=== PATIENT | female | born 1950 | race Caucasian/White ===

== ENCOUNTER 2017-01-26 08:04 | Emergency (ER) | payer OTHER ==
[2017-01-26 08:08] VITALS: BP 156/89; PULSE 82; TEMP 98.4; BMI 28.0
[2017-01-26] MEDS ORDERED: ACETAMINOPHEN 1000 MG/100 ML VIAL (NON FORMULARY) IVPB ONE (08:26)
[2017-01-26] MEDS ORDERED: METOCLOPRAMIDE HCL INJECTION 10 MG/2 ML VIAL IVPB ONE (08:27)
--- NOTE | 2017-01-26 08:36 | PDOC ---
History of Present Illness - General Chief Complaint: Pain, Acute Stated Complaint: NECK PAIN Time Seen by Provider: 01/26/17 08:24 - History of Present Illness Initial Comments: 01/26/17 08:37 66 F with h/o HTN, HLD, hypothyroid presents to ER with 1 week of L sided neck pain radiating down L arm. Pt denies CP/SOB. Denies any trauma or injury. Pt states that the neck pain is worse with certain movements, though she does not note any limitation in the ROM of her neck. She states that she has had similar pain before several years ago. Endorses some mild pins and needles sensation going down her L arm but no weakness. Has not had any difficulty gripping or holding onto objects. Pt also reports mild headache that gradually progressed, moving from her neck into the back of her head. Denies N/V. Denies neck stiffness. Denies F/C. Pt relates the pain to increased stress at her job. States that she feels a lot of pressure at work, which is where she states the pain feels worse. She reports significant improvement in the pain when she is at home. Past History - Past Medical History Allergies/Adverse Reactions: Allergies Allergy/AdvReac Type Severity Reaction Status Date / Time codeine [Codeine] Allergy Verified 01/26/17 08:05 Home Medications: Ambulatory Orders Enalapril Maleate 20 mg PO DAILY 08/04/12 Levothyroxine [Synthroid -] 50 mcg PO DAILY 08/04/12 Omeprazole [Prilosec (RX)] 20 mg PO DAILY 08/04/12 Aspirin [ASA -] 81 mg PO DAILY 08/10/14 Nortriptyline HCl [Pamelor -] 25 mg PO DAILY 08/10/14 Verapamil HCl [Verapamil ER] 240 mg PO HS 01/24/16 Anemia: No HTN: Yes Thyroid Disease: Yes - Surgical History Abdominal Surgery: Yes (HERNIA X3) Cholecystectomy: Yes - Psycho/Social/Smoking Cessation Hx Anxiety: No Suicidal Ideation: No Smoking Status: No Smoking History: Never smoked Number of Cigarettes Smoked Daily: 0 Hx Alcohol Use: No Drug/Substance Use Hx: No Substance Use Type: None Review of Systems - Review of Systems Comments:: 01/26/17 08:41 "GENERAL/CONSTITUTIONAL: No fever or chills. No weakness. HEAD, EYES, EARS, NOSE AND THROAT: No change in vision. No ear pain or discharge. No sore throat. CARDIOVASCULAR: No chest pain or shortness of breath. RESPIRATORY: No cough, wheezing, or hemoptysis. GASTROINTESTINAL: No nausea, vomiting, diarrhea or constipation. GENITOURINARY: No dysuria, frequency, or change in urination. MUSCULOSKELETAL: +Left neck pain. No joint or muscle swelling or pain. No back pain. SKIN: No rash NEUROLOGIC: No headache, vertigo, loss of consciousness, or change in strength/ sensation. ENDOCRINE: No increased thirst. No abnormal weight change. HEMATOLOGIC/LYMPHATIC: No anemia, easy bleeding, or history of blood clots. ALLERGIC/IMMUNOLOGIC: No hives or skin allergy. " *Physical Exam - Vital Signs Last Vital Signs Temp Pulse Resp BP Pulse Ox 98.4 F 82 18 156/89 97 01/26/17 08:05 01/26/17 08:05 01/26/17 08:05 01/26/17 08:05 01/26/17 08:05 - Physical Exam Comments: 01/26/17 08:42 "GENERAL: Awake, alert, and fully oriented, well appearing in no acute distress HEAD: No signs of trauma EYES: PERRLA, EOMI, sclera anicteric, conjunctiva clear ENT: Auricles normal inspection, hearing grossly normal, nares patent, oropharynx clear without exudates. Moist mucosa NECK: +paraspinal L posterior tenderness, Normal ROM, supple, no lymphadenopathy , JVD, or masses, no bruits LUNGS: Breath sounds equal, clear to auscultation bilaterally. No wheezes, and no crackles HEART: Regular rate and rhythm, normal S1 and S2, no murmurs, rubs or gallops ABDOMEN: Soft, nontender, normoactive bowel sounds. No guarding, no rebound. No masses EXTREMITIES: Normal range of motion, no edema. No clubbing or cyanosis. No cords, erythema, or tenderness NEUROLOGICAL: Cranial nerves II through XII intact. 5/5 strength and sensation in all extremities, cerebellar function intact. Normal speech, normal gait SKIN: Warm, Dry, normal turgor, no rashes or lesions noted. " Heart Score/ECG Review - History History: Slightly suspicious - Electrocardiogram EKG: Normal - Age Age: >/= 65 - Risk Factors Risk Factors Heart Score: Yes Hx Hypercholesterolemia, Yes Hx Hypertension Based on the list above the patient has:: 1-2 risk factors - Troponin Troponin: </= normal limit - Score Heart Score - Total: 3 - ECG Impressions Comment:: 01/26/17 08:43 NSR, no MARIANO/STDs, no TWIs, axis wnl, normal intervals ED Treatment Course - LABORATORY CBC & Chemistry Diagram: 01/26/17 08:29 01/26/17 08:29 - RADIOLOGY Radiology Studies Ordered: Category Date Time Status HEAD CT WITHOUT CONTRAST [CT] Stat CT Scan 01/26/17 08:25 Ordered CHEST X-RAY PORTABLE* [RAD] Stat Radiology 01/26/17 08:26 Ordered Medical Decision Making - Medical Decision Making 01/26/17 08:44 66 F with L sided neck pain radiating down L arm. Likely radiculopathy given subjective paresthesias. However, pt with completely normal neuro exam. Thus, low suspicion for acute spinal cord injury or acute stroke. Pt does complain of mild headache but otherwise well appearing with normal exam, making ICH unlikely. No fevers or infectious symptoms to suggest meningitis. Pt with no chest pain/SOB, and EKG is completely nonischemic making anginal equivalent unlikely. - Labs - CTH - CXR - Tylenol/reglan 01/26/17 10:34 CBC, BMP 01/26/17 08:29 01/26/17 08:29 Trop negative, CTH negative Pt reports significant improvement in pain s/p tylenol and reglan. Likely muscular vs radicular pain. Pt to f/u with PMD and neurologist, as well as environmental engineering manager. *DC/Admit/Observation/Transfer Diagnosis at time of Disposition: Neck pain - Discharge Dispostion Disposition: HOME Condition at time of disposition: Good - Patient Instructions Printed Discharge Instructions: DI for Neck Pain Additional Instructions: Please follow up with your primary care doctor and environmental engineering manager within 1 week for a re-evaluation. Your neck pain is likely due to a pinched nerve or muscle sprain. You should see a neurologist for further evaluation. You may need an MRI of your neck. Take tylenol every 8 hours as needed for pain. If you experience worsening pain, numbness, weakness in your arm, chest pain, or any other concerning symptoms, return immediately to the ER. - Post Discharge Activity Work/School Note: Back to Work - Attestations Physician Attestion: 01/26/17 10:37 I, Dr. Roberto Vaz MD, attest that this document has been prepared under my direction and personally reviewed by me in its entirety. I further attest, that it accurately reflects all work, treatment, procedures and medical decision -making performed by me.
[2017-01-26] MEDS ORDERED: ACETAMINOPHEN INJECTION 100 ML IVPB ONE (08:47)
[2017-01-26 09:14] LABS: ALBUMIN 4.3 g/dl (3.5-5.0); ALK PHOS 84 U/L (32-92); ANION GAP 5 (8-16); CALCIUM 9.4 mg/dl (8.4-10.2); CO2 27 mmol/L (22-28); CPK 111 IU/L (26-192); CREATININE 0.7 mg/dl (0.6-1.3); GLUCOSE,RANDOM 113 mg/dl (74-106); SGOT/AST 28 U/L (10-42); SGPT/ALT 37 U/L (10-40); TOT PROT 7.1 g/dl (6.4-8.3)
[2017-01-26 09:23] LABS: TROPONIN I (DFP) < 0.03 ng/ml (0.03-0.50)
[2017-01-26 10:17] LABS: BASOPHIL 0.5 % (0-2.0); EOSINOPHIL 5.7 % (0-4.5); MCH 29.1 pg (25.7-33.7); MEAN CELL VOLUME 88.1 fl (80-96); MEAN PLT VOLUME 9.3 fl (7.5-11.1); NEUTROPHILS 37.4 % (42.8-82.8); PLATELET COUNT 306 K/MM3 (134-434); RDW 14.6 % (11.6-15.6); WHITE BLOOD COUNT 6.3 K/mm3 (4.0-10.8)
--- NOTE | 2017-01-28 08:09 | EKG ---
Test Reason : Blood Pressure : / mmHG Vent. Rate : 071 BPM Atrial Rate : 071 BPM P-R Int : 184 ms QRS Dur : 084 ms QT Int : 360 ms P-R-T Axes : 037 -19 032 degrees QTc Int : 392 ms NORMAL SINUS RHYTHM MINIMAL VOLTAGE CRITERIA FOR LVH, MAY BE NORMAL VARIANT BORDERLINE ECG WHEN COMPARED WITH ECG OF 10-AUG-2014 14:46, NO SIGNIFICANT CHANGE WAS FOUND Confirmed by PIA DESOUZA MD ([id number]) on 01/28/2017 8:08:39 AM Referred By: MD FRAZIER Confirmed By:PIA DESOUZA MD
== END 2017-01-26 10:46 | disposition home or self-care (01) ==
LOC: FER 08:04
PROC: 3E033NZ Introduction of Analgesics, Hypnotics, Sedatives into Peripheral Vein, Percutaneous Approach (ICD-10-PCS; principal; 2017-01-26)
PROC: 3E033GC Introduction of Other Therapeutic Substance into Peripheral Vein, Percutaneous Approach (ICD-10-PCS; 2017-01-26)
DX: M54.2 Cervicalgia (principal); E03.9 Hypothyroidism, unspecified; E78.5 Hyperlipidemia, unspecified; I10 Essential (primary) hypertension
CPT/HCPCS: 36415; 70450-TC; 71010-TC; 80053; 84443; 84484; 85025; 93005; 96374; 96375; 99283-25

== ENCOUNTER 2017-04-28 13:25 | Emergency (ER) | payer OTHER ==
[2017-04-28 14:00] VITALS: BP 152/92; PULSE 85; TEMP 98.6; BMI 28.1
[2017-04-28] MEDS ORDERED: IBUPROFEN 600 MG TABLET (FP) PO ONE ×2 (14:22→14:28)
--- NOTE | 2017-04-28 14:25 | PDOC ---
History of Present Illness - General History Source: Patient Exam Limitations: No Limitations - History of Present Illness Initial Comments: 04/28/17 14:48 The patient is a 66 year old female, with a significant past medical history of HTN, HLD, hypothyroid and GERD, who presents to the emergency department with left and right sided face / jaw pain / neck pain / swelling for the last 2 days. She reports that it hurts to swallow as well. She states that certain neck movements exacerbates her pain. She also reports that she has a cough that is non productive. She states that she took ibuprofen 500mg at 8am this morning with minimal relief of her symptoms. She denies any previous stress tests. She denies any family history of heart disease. The patient denies chest pain, shortness of breath, headache and dizziness. Denies fever, chills, nausea, vomit, diarrhea and constipation. Denies dysuria, frequency, urgency and hematuria. Allergies: Codeine Past surgical history: Abdominal hernia repair (x3), cholecystectomy Social history: No alcohol, tobacco or drug use reported <Mateo Watson - Last Filed: 04/28/17 14:48> - General History Source: Patient Exam Limitations: No Limitations <Judith Pena - Last Filed: 04/28/17 15:20> - General Chief Complaint: Pain Stated Complaint: LEFT JAW/NECK SWELLING Time Seen by Provider: 04/28/17 13:39 Past History <Mateo Watson - Last Filed: 04/28/17 14:48> - Past Medical History Anemia: No COPD: No HTN: Yes Hypercholesterolemia: Yes Thyroid Disease: Yes - Surgical History Abdominal Surgery: Yes (HERNIA X3) Cholecystectomy: Yes - Suicide/Smoking/Psychosocial Hx Smoking Status: No Smoking History: Never smoked Number of Cigarettes Smoked Daily: 0 Hx Alcohol Use: Yes (OCCASIONAL) Drug/Substance Use Hx: No Substance Use Type: None <Judith Pena - Last Filed: 04/28/17 15:20> - Past Medical History Allergies/Adverse Reactions: Allergies Allergy/AdvReac Type Severity Reaction Status Date / Time codeine [Codeine] Allergy Verified 04/28/17 13:50 Home Medications: Ambulatory Orders Enalapril Maleate 20 mg PO HS 08/04/12 Levothyroxine [Synthroid -] 50 mcg PO HS 08/04/12 Omeprazole [Prilosec (RX)] 20 mg PO HS 08/04/12 Aspirin [ASA -] 81 mg PO HS 08/10/14 Nortriptyline HCl [Pamelor -] 25 mg PO HS 08/10/14 Verapamil HCl [Verapamil ER] 240 mg PO HS 01/24/16 Fluticasone Prop 0.05% Nasal [Flonase -] 1 spray NS BID #1 bot 04/28/17 Fluticasone Prop 0.05% Nasal [Flonase -] 1 spray NS BID #1 bot 04/28/17 Ibuprofen [Motrin -] 600 mg PO TID #90 tablet 04/28/17 Review of Systems - Review of Systems Able to Perform ROS?: Yes Comments:: 04/28/17 14:48 GENERAL/CONSTITUTIONAL: No fever or chills. No weakness. HEAD, EYES, EARS, NOSE AND THROAT: (+) Bilateral jaw and neck pain with swelling. Pain when swallowing. No change in vision. No ear pain or discharge. CARDIOVASCULAR: No chest pain or shortness of breath RESPIRATORY: No cough, wheezing, or hemoptysis. GASTROINTESTINAL: No nausea, vomiting, diarrhea or constipation. GENITOURINARY: No dysuria, frequency, or change in urination. MUSCULOSKELETAL: No joint or muscle swelling or pain. No neck or back pain. SKIN: No rash NEUROLOGIC: No headache, vertigo, loss of consciousness, or change in strength/ sensation. ENDOCRINE: No increased thirst. No abnormal weight change HEMATOLOGIC/LYMPHATIC: No anemia, easy bleeding, or history of blood clots. ALLERGIC/IMMUNOLOGIC: No hives or skin allergy. <Mateo Watson - Last Filed: 04/28/17 14:48> *Physical Exam - Vital Signs Last Vital Signs Temp Pulse Resp BP Pulse Ox 98.6 F 85 16 152/92 99 04/28/17 13:36 04/28/17 13:36 04/28/17 13:36 04/28/17 13:36 04/28/17 13:36 - Physical Exam Comments: 04/28/17 14:48 GENERAL: Awake, alert, and fully oriented, in no acute distress HEAD: No signs of trauma, normocephalic, atraumatic EYES: PERRLA, EOMI, sclera anicteric, conjunctiva clear ENT: (+) Turbenent enlargement in the nose. Auricles normal inspection, hearing grossly normal, oropharynx clear without exudates. Moist mucosa NECK: (+) Tenderness and lymphadenopathy, no erythema noted but cobblestoning. Normal ROM, supple, no, JVD, or masses LUNGS: No distress, speaks full sentences, clear to auscultation bilaterally HEART: Regular rate and rhythm, normal S1 and S2, no murmurs, rubs or gallops, peripheral pulses normal and equal bilaterally. MUSCULOSKELETAL: (+) Trapezial muscle tenderness ABDOMEN: Soft, nontender, normoactive bowel sounds. No guarding, no rebound. No masses EXTREMITIES : Normal inspection, Normal range of motion, no edema. No clubbing or cyanosis. NEUROLOGICAL: AO x 3 Normal gait, SKIN: Warm, Dry, normal turgor, no rashes or lesions noted. <Mateo Watson - Last Filed: 04/28/17 14:48> - Vital Signs Last Vital Signs Temp Pulse Resp BP Pulse Ox 98.6 F 85 16 152/92 99 04/28/17 13:36 04/28/17 13:36 04/28/17 13:36 04/28/17 13:36 04/28/17 13:36 <Judith Pena - Last Filed: 04/28/17 15:20> Heart Score/ECG Review #1 General ECG Interpretation: Sinus Rhythm, Normal Rate (74), Normal Intervals, No acute ischemic changes <Judith Pena - Last Filed: 04/28/17 15:20> ED Treatment Course - RADIOLOGY Radiology Studies Ordered: Category Date Time Status CHEST PA & LAT [RAD] Stat Radiology 04/28/17 14:22 Ordered <Judith Pena - Last Filed: 04/28/17 15:20> Medical Decision Making - Medical Decision Making 04/28/17 14:23 66-year-old female history of hypertension here today complaining of left lateral neck and jaw pain. Patient states previously was on the right side and now she feels on the left started 5 days ago does have pain with swallowing and soreness in the back of her throat in addition she describes nasal congestion cough which is nonproductive and sinus pressure. Took Motrin this a.m. which did help no fevers chills nausea or vomiting. No chest pain or chest pressure no shortness of breath pain in her neck is worse with turning her head to the side and lateral head movements no difficulty swallowing no sick contacts Physical exam is noted for left lateral neck lymphadenopathy and sternocleidomastoid tenderness as well as tenderness along the trapezium pharynx is with posterior cobblestoning no tonsillar erythema no tonsillar exudates. I lateral nasal turbinate enlargement and edema cardiac and lung exam is unremarkable Differential includes lymphadenitis reactive to a viral URI, postnasal drip, sinusitis, sinus sialoadenitis however inflammation and swelling is minimal. Plan to treat with NSAIDs and Flonase follow-up with ENT and patient's primary doctor. Chest x-ray to rule out pneumonia, and screening EKG 04/28/17 15:14 Chest x-ray is negative for any acute pathology. Patient feels improved we'll discharge home with Motrin Flonase follow-up with ENT and her primary care doctor recommended as well as topical muscle pain creams as BenGay or Arriba balm for trapezial spasm <Judith Pena - Last Filed: 04/28/17 15:20> *DC/Admit/Observation/Transfer - Attestations Scribe Attestion: 04/28/17 14:49 Documentation prepared by Mateo Watson, acting as medical office administrator for Judith Pena MD <Mateo Watson - Last Filed: 04/28/17 14:48> - Discharge Dispostion Admit: No <Judith Pena - Last Filed: 04/28/17 15:20> Diagnosis at time of Disposition: Viral URI, Post-nasal drip, Lymphadenopathy of head and neck - Discharge Dispostion Disposition: HOME Condition at time of disposition: Improved - Prescriptions Prescriptions: Fluticasone Prop 0.05% Nasal [Flonase -] 1 spray NS BID #1 bot Ibuprofen [Motrin -] 600 mg PO TID #90 tablet - Referrals Referrals: Tasneem Elmore MD [Primary Care Provider] - - Patient Instructions Printed Discharge Instructions: Common Cold, DI for Lymphadenopathy Additional Instructions: More as he should follow-up with your primary care physician. Call to schedule within the next week. Use Flonase nasal spray 1 spray each nostril twice daily. He can take Motrin 600 mg every 8 hours as needed for pain. Use topical BenGay or Arriba balm for muscle spasm in the left shoulder. Return for any chest pain, problems breathing, worsening symptoms or any concerns. You can also follow up with ear, nose, throat doctor Dr. Deshpande see referral information for phone number and call to schedule Print Language: HONG KONGER - Post Discharge Activity
--- NOTE | 2017-04-29 17:41 | EKG ---
Test Reason : Blood Pressure : / mmHG Vent. Rate : 074 BPM Atrial Rate : 074 BPM P-R Int : 190 ms QRS Dur : 088 ms QT Int : 386 ms P-R-T Axes : 037 -18 035 degrees QTc Int : 428 ms NORMAL SINUS RHYTHM LEFT VENTRICULAR HYPERTROPHY ABNORMAL ECG WHEN COMPARED WITH ECG OF 26-JAN-2017 08:43, NO SIGNIFICANT CHANGE WAS FOUND Confirmed by PIA DESOUZA MD ([id number]) on 04/29/2017 5:41:09 PM Referred By: YOKASTA GAVIRIA Confirmed By:PIA DESOUZA MD
== END 2017-04-28 16:10 | disposition home or self-care (01) ==
LOC: FER 13:25
DX: R09.82 Postnasal drip (principal); R59.9 Enlarged lymph nodes, unspecified; J06.9 Acute upper respiratory infection, unspecified; I10 Essential (primary) hypertension
CPT/HCPCS: 71020-TC; 93005; 99282-25

== ENCOUNTER 2018-06-17 05:53 | Emergency (ER) | payer OTHER ==
--- NOTE | 2018-06-17 06:21 | PDOC ---
History of Present Illness - General Chief Complaint: Cold Symptoms Stated Complaint: COUGH Time Seen by Provider: 06/17/18 06:20 History Source: Patient Exam Limitations: No Limitations, Language Barrier - History of Present Illness Initial Comments: 67 yo F w a pmh of HTN, HLD, hypothyroidism and GERD presents to the ER with 3 days of a cough productive of green frothy sputum. She also endorses having a sore throat. She denies any chest pain, nausea, vomiting, or diaphoresis. She states she is not sure whether she has had any recent fevers as she did not measure her temperature at home but endorses the chills and random sweats. She also says she has a band like headache around her head which feels pressure like and intense. The headache comes and goes but is not the worst headache of her life. She has not taken any medications to make her cough go away. The patient denies chest pain, SOB, difficulty breathing, blurry vision, ataxia , confusion, fevers, dysuria, frequency, urgency. PCP: Tasneem Elmore Allergies: Codeine Past surgical history: Abdominal hernia repair (x3), cholecystectomy Social history: No alcohol, tobacco or drug use reported Past History - Past Medical History Allergies/Adverse Reactions: Allergies Allergy/AdvReac Type Severity Reaction Status Date / Time codeine [Codeine] Allergy Verified 06/17/18 06:08 Home Medications: Ambulatory Orders Enalapril Maleate 20 mg PO HS 08/04/12 Levothyroxine [Synthroid -] 50 mcg PO HS 08/04/12 Omeprazole [Prilosec (RX)] 20 mg PO HS 08/04/12 Aspirin [ASA -] 81 mg PO HS 08/10/14 Nortriptyline HCl [Pamelor -] 25 mg PO HS 08/10/14 Verapamil HCl [Verapamil ER] 240 mg PO HS 01/24/16 Fluticasone Prop 0.05% Nasal [Flonase -] 1 spray NS BID #1 bot 04/28/17 Fluticasone Prop 0.05% Nasal [Flonase -] 1 spray NS BID #1 bot 04/28/17 Ibuprofen [Motrin -] 600 mg PO TID #90 tablet 04/28/17 Oseltamivir Phosphate [Tamiflu -] 75 mg PO BID #10 capsule 06/17/18 Anemia: No COPD: No HTN: Yes Hypercholesterolemia: Yes Thyroid Disease: Yes - Surgical History Abdominal Surgery: Yes (HERNIA X3) Cholecystectomy: Yes - Suicide/Smoking/Psychosocial Hx Smoking Status: No Smoking History: Never smoked Have you smoked in the past 12 months: No Number of Cigarettes Smoked Daily: 0 Information on smoking cessation initiated: No Hx Alcohol Use: No Drug/Substance Use Hx: No Substance Use Type: None Review of Systems - Review of Systems Able to Perform ROS?: Yes Comments:: CONSTITUTIONAL: Absent: fever, no chills, no fatigue EYES: Absent: visual changes ENT: Present: Sore throat Absent: ear pain CARDIOVASCULAR: Absent: chest pain, no palpitations RESPIRATORY: Present: Cough Absent: no SOB GI: Absent: abdominal pain, no nausea, no vomiting, no constipation, no diarrhea GENITOURINARY: Absent: dysuria, no frequency, no hematuria MUSKULOSKELETAL: Absent: back pain, no arthralgia, no myalgia SKIN: Absent: rash NEURO: Absent: headache *Physical Exam - Vital Signs Last Vital Signs Temp Pulse Resp BP Pulse Ox 97.6 F 101 H 18 131/83 96 06/17/18 06:09 06/17/18 06:09 06/17/18 06:09 06/17/18 06:09 06/17/18 06:09 - Physical Exam Comments: GENERAL: Well-appearing, well-nourished. No apparent distress. HEENT: No oropharyngeal erythema. No lympphadenopathy. Normocephalic, atraumatic. PERRL, EOM intact. CARDIOVASCULAR: Normal S1, S2. Regular rate and rhythm. PULMONARY: No evidence of respiratory distress. Lungs clear to auscultation bilaterally. No wheezing, rales or rhonchi. ABDOMEN: Soft, non-distended, non-tender. EXTREMITIES: Normal ROM in all four extremities. No gross deformities. SKIN: Warm, dry. No rash NEUROLOGICAL: No focal neurological deficits. Moderate Sedation - Procedure Monitoring Vital Signs: Procedure Monitoring Vital Signs Temperature 97.6 F 06/17/18 06:09 Pulse Rate 101 H 06/17/18 06:09 Respiratory Rate 18 06/17/18 06:09 Blood Pressure 131/83 06/17/18 06:09 O2 Sat by Pulse Oximetry (%) 96 06/17/18 06:09 ED Treatment Course - LABORATORY CBC & Chemistry Diagram: 06/17/18 06:32 06/17/18 06:32 Medical Decision Making - Medical Decision Making 67 yo F w a pmh of HTN, HLD, hypothyroidism and GERD presents to the ER with 3 days of a cough productive of green frothy sputum. She also endorses having a sore throat. She denies any chest pain, nausea, vomiting, or diaphoresis. She states she is not sure whether she has had any recent fevers as she did not measure her temperature at home but endorses the chills and random sweats. She also says she has a band like headache around her head which feels pressure like and intense. The headache comes and goes but is not the worst headache of her life. She has not taken any medications to make her cough go away. DDx IBNLT: strep, cough, bronchitis, PNA, influenza, pneumothorax, myxedema Plan: Labs, CXR, EKG, flu swab, rapid strep, IV hydration, analgesia, re- assess. - Flu swab positive. patient signed out to day team. *DC/Admit/Observation/Transfer Diagnosis at time of Disposition: Cough, Influenza A - Discharge Dispostion Disposition: HOME Condition at time of disposition: Stable Decision to Admit order: No - Prescriptions Prescriptions: Oseltamivir Phosphate [Tamiflu -] 75 mg PO BID #10 capsule - Referrals Referrals: Tasneem Elmore MD [Primary Care Provider] - - Patient Instructions Printed Discharge Instructions: DI for Influenza -- Adult Additional Instructions: You came into the ER with a cough and sore throat. You were found to be positive for Influenza. You were give Tamiflu here and a prescription was sent to the pharmacy that you specified. Review the handout provided at discharge. Follow up with your primary care provider. Return to the Emergency Department if you develop fevers despite Tylenol use, chest pain, trouble breathing, vomiting, or any new/concerning symptoms. Print Language: DIVEHI - Post Discharge Activity Forms/Work/School Notes: Back to Work
[2018-06-17] MEDS ORDERED: SODIUM CHLORIDE 0.9% 500 ML INFUS.BAG IV ONE (06:23)
[2018-06-17 06:24] VITALS: TEMP 97.6; BMI 30.7
[2018-06-17] MEDS ORDERED: ACETAMINOPHEN INJECTION 100 ML IVPB ONE (06:35)
[2018-06-17] MEDS ORDERED: ACETAMINOPHEN 1000 MG/100 ML VIAL (NON FORMULARY) IVPB ONE (06:37)
[2018-06-17] MEDS ORDERED: IBUPROFEN 600 MG TABLET (FP) PO ONE ×2 (06:47→06:55)
--- NOTE | 2018-06-17 07:03 | PDOC ---
*Physical Exam - Vital Signs Last Vital Signs Temp Pulse Resp BP Pulse Ox 97.6 F 101 H 18 131/83 96 06/17/18 06:09 06/17/18 06:09 06/17/18 06:09 06/17/18 06:09 06/17/18 06:09 - Physical Exam Comments: GENERAL: Awake, alert, and fully oriented, in no acute distress HEAD: No signs of trauma, normocephalic, atraumatic EYES: PERRLA, EOMI, sclera anicteric, conjunctiva clear ENT: Hearing grossly normal, nares patent, oropharynx clear without exudates. No uvular deviation. Moist mucosa LUNGS: No distress, speaks full sentences, clear to auscultation bilaterally HEART: Regular rate and rhythm, normal S1 and S2, no murmurs appreciated, peripheral pulses normal and equal bilaterally ABDOMEN: Soft, nontender, normoactive bowel sounds. No guarding, no rebound EXTREMITIES : Normal inspection, Normal range of motion, no edema. No clubbing or cyanosis NEUROLOGICAL: Cranial nerves II through XII grossly intact. Normal speech, no focal sensorimotor deficits SKIN: Warm, Dry, normal turgor, no rashes or lesions noted 06/17/18 09:31 <Roberto Pryor - Last Filed: 06/17/18 09:32> - Vital Signs Last Vital Signs Temp Pulse Resp BP Pulse Ox 97.6 F 101 H 18 131/83 96 06/17/18 06:09 06/17/18 06:09 06/17/18 06:09 06/17/18 06:09 06/17/18 06:09 <Andriy Jones - Last Filed: 06/17/18 09:46> ED Treatment Course - LABORATORY CBC & Chemistry Diagram: 06/17/18 06:32 06/17/18 06:32 - Medications Given in the ED: ED Medications Discontinued Medications Generic Name Dose Route Start Last Admin Trade Name Marcoq PRN Reason Stop Dose Admin Acetaminophen 1,000 mg 06/17/18 06:37 06/17/18 06:41 Ofirmev Injection - IVPB 06/17/18 06:38 1,000 mg ONCE ONE Administration Ibuprofen 600 mg 06/17/18 06:47 06/17/18 06:56 Motrin - PO 06/17/18 06:48 600 mg ONCE ONE Administration Sodium Chloride 1,000 ml 06/17/18 06:23 06/17/18 06:41 Normal Saline - IV 06/17/18 06:24 1,000 ml ONCE ONE Administration <Roberto Pryor - Last Filed: 06/17/18 09:32> - LABORATORY CBC & Chemistry Diagram: 06/17/18 06:32 06/17/18 06:32 - ADDITIONAL ORDERS Additional order review: Laboratory Results 06/17/18 06/17/18 06/17/18 06:32 06:32 06:32 VBG pH 7.36 POC VBG pCO2 45.4 POC VBG pO2 34.9 Mixed VBG HCO3 25.0 Sodium 137 Potassium 4.3 Chloride 103 Carbon Dioxide 30 Anion Gap 4 L BUN 8 Creatinine 0.8 Creat Clearance w eGFR > 60 Random Glucose 113 H Calcium 7.9 L Total Bilirubin 0.3 AST 33 ALT 52 Alkaline Phosphatase 105 Total Protein 7.6 Albumin 4.3 TSH 1.33 06/17/18 06:32 RBC 4.40 MCV 91.7 MCHC 34.7 RDW 14.2 MPV 8.9 Neutrophils % 74.1 D Lymphocytes % 13.7 D Monocytes % 10.0 Eosinophils % 0.9 Basophils % 1.3 - Medications Given in the ED: ED Medications Discontinued Medications Generic Name Dose Route Start Last Admin Trade Name Marcoq PRN Reason Stop Dose Admin Acetaminophen 1,000 mg 06/17/18 06:37 06/17/18 06:41 Ofirmev Injection - IVPB 06/17/18 06:38 1,000 mg ONCE ONE Administration Ibuprofen 600 mg 06/17/18 06:47 06/17/18 06:56 Motrin - PO 06/17/18 06:48 600 mg ONCE ONE Administration Oseltamivir Phosphate 75 mg 06/17/18 09:28 06/17/18 09:40 Tamiflu - PO 06/17/18 09:29 75 mg ONCE ONE Administration Sodium Chloride 1,000 ml 06/17/18 06:23 06/17/18 06:41 Normal Saline - IV 06/17/18 06:24 1,000 ml ONCE ONE Administration <Andriy Jones - Last Filed: 06/17/18 09:46> Medical Decision Making - Medical Decision Making 67 yo F w a pmh of HTN, HLD, hypothyroidism and GERD presents to the ER with 3 days of a cough productive of green frothy sputum. She also endorses having a sore throat. Endorses chills and cold sweats. Endorses band-like WARREN which comes and goes and is not the worst of her life. Has not tried any meds for her symptoms. 06/17/18 07:44 Flu A positive 06/17/18 07:45 <Roberto Pryor - Last Filed: 06/17/18 09:32> *DC/Admit/Observation/Transfer <Roberto Pryor - Last Filed: 06/17/18 09:32> <Andriy Jones - Last Filed: 06/17/18 09:46> Diagnosis at time of Disposition: Cough, Influenza A - Discharge Dispostion Disposition: HOME Condition at time of disposition: Stable - Prescriptions Prescriptions: Oseltamivir Phosphate [Tamiflu -] 75 mg PO BID #10 capsule - Referrals Referrals: Tasneem Elmore MD [Primary Care Provider] - - Patient Instructions Printed Discharge Instructions: DI for Influenza -- Adult Additional Instructions: You came into the ER with a cough and sore throat. You were found to be positive for Influenza. You were give Tamiflu here and a prescription was sent to the pharmacy that you specified. Review the handout provided at discharge. Follow up with your primary care provider. Return to the Emergency Department if you develop fevers despite Tylenol use, chest pain, trouble breathing, vomiting, or any new/concerning symptoms. Print Language: ITALIAN - Post Discharge Activity Forms/Work/School Notes: Back to Work
[2018-06-17 07:07] LABS: VENOUS PC02 45.4 mmHg (38-52); VENOUS PH 7.36 (7.32-7.42); VENOUS PO2 34.9 mmHg (28-48)
[2018-06-17 07:21] LABS: BASO % 1.3 % (0-2.0); EOS % 0.9 % (0-4.5); HEMATOCRIT 40.4 % (32.4-45.2); LYMPH % 13.7 % (8-40); MCH 31.8 pg (25.7-33.7); MCHC 34.7 g/dl (32.0-36.0); MEAN CELL VOLUME 91.7 fl (80-96); MEAN PLT VOLUME 8.9 fl (7.5-11.1); NEUT % 74.1 % (42.8-82.8); PLATELET COUNT 200 K/MM3 (134-434); RDW 14.2 % (11.6-15.6); WHITE BLOOD COUNT 5.2 K/mm3 (4.0-10.0)
[2018-06-17 07:33] LABS: ALBUMIN 4.3 g/dl (3.4-5.0); ALK PHOS 105 U/L (45-117); ANION GAP 4 MMOL/L (8-16); BILIRUBIN,TOTAL 0.3 mg/dL (0.2-1); BLOOD UREA NITROGEN 8 mg/dL (7-18); CALCIUM 7.9 mg/dL (8.5-10.1); CHLORIDE 103 mmol/L (98-107); CO2 30 mmol/L (21-32); CREATININE 0.8 mg/dL (0.55-1.3); GLUCOSE,RANDOM 113 mg/dL (74-106); POTASSIUM 4.3 mmol/L (3.5-5.1); SGOT/AST 33 U/L (15-37); SGPT/ALT 52 U/L (13-61); SODIUM 137 mmol/L (136-145); TOT PROT 7.6 g/dl (6.4-8.2)
[2018-06-17] MEDS ORDERED: OSELTAMIVIR PHOSPHATE 75 MG CAPSULE PO ONE (09:28)
[2018-06-17] MEDS ORDERED: OSELTAMIVIR PHOSPHATE 75 MG CAPSULE ONE (09:37)
--- NOTE | 2018-06-17 09:48 | EKG ---
Test Reason : Blood Pressure : / mmHG Vent. Rate : 082 BPM Atrial Rate : 082 BPM P-R Int : 176 ms QRS Dur : 086 ms QT Int : 376 ms P-R-T Axes : 043 -22 052 degrees QTc Int : 439 ms NORMAL SINUS RHYTHM MINIMAL VOLTAGE CRITERIA FOR LVH, MAY BE NORMAL VARIANT NONSPECIFIC T WAVE ABNORMALITY ABNORMAL ECG WHEN COMPARED WITH ECG OF 28-APR-2017 14:32, NO SIGNIFICANT CHANGE WAS FOUND Confirmed by MISHA BUCK, SIMEON ([id number]) on 06/17/2018 9:48:09 AM Referred By: Confirmed By:SIMEON CABRAL MD
[2018-06-17 09:50] VITALS: BP 115/77; PULSE 84
--- NOTE | 2018-06-17 10:01 | PDOC ---
Attending Attestation - Resident Resident Name: Roberto Pryor - ED Attending Attestation I have performed the following: I have examined & evaluated the patient, The case was reviewed & discussed with the resident, I agree w/resident's findings & plan - HPI HPI: 06/17/18 09:57 67-year-old female with history of hypertension presents with cough, sore throat , fever/chills for 3 days. Cough with occasional clear sputum, abdomen just spasm following cough this morning so she presents for evaluation. Otherwise denies any chest pain or dyspnea, no vomiting or diarrhea. 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 - Physicial Exam PE: 06/17/18 09:58 Afebrile here Well-appearing, conversant, seated upright in stretcher speaking full sentences Oropharynx slightly erythematous but no swelling or exudate Bilateral anterior cervical lymphadenopathy, neck is supple Heart is regular, lungs are clear without focally decreased breath sounds or wheezing or crackles Abdomen benign Neurologically intact - Medical Decision Making 06/17/18 09:59 67-year-old female with history of hypertension, otherwise high functioning and well at baseline presents with 3 days of URI symptoms with cough, viral including influenza versus pneumonia. Labs are within normal limits, no leukocytosis, chemistries normal Influenza a positive, strep negative Chest x-ray without acute infiltrate Stable and feels well, given age we'll treat with Tamiflu, understands return criteria. Heart Score/ECG Review #1 ECG reviewed & interpreted by me at: 07:29 General ECG Interpretation: Sinus Rhythm, Normal Rate (82), Normal Intervals ( qtc 439, borderline LVH), No acute ischemic changes
== END 2018-06-17 09:50 | disposition home or self-care (01) ==
LOC: JER 05:53
PROC: 3E033NZ Introduction of Analgesics, Hypnotics, Sedatives into Peripheral Vein, Percutaneous Approach (ICD-10-PCS; principal; 2018-06-17)
DX: J09.X2 Influenza due to identified novel influenza A virus with other respiratory manifestations (principal); I10 Essential (primary) hypertension; E78.5 Hyperlipidemia, unspecified; E03.9 Hypothyroidism, unspecified; K21.9 Gastro-esophageal reflux disease without esophagitis
CPT/HCPCS: 36415; 71046-TC-FY; 80053; 82803; 84443; 85025; 87070; 87804; 87880; 93005; 93010; 96374; 99282-25; J0131

== ENCOUNTER 2019-04-03 11:10 | Emergency (ER) | payer OTHER ==
[2019-04-03 11:29] VITALS: BP 171/85; PULSE 81; TEMP 98; BMI 29.9
[2019-04-03] MEDS ORDERED: ACETAMINOPHEN 325 MG TABLET (FP) PO ONE (11:57)
[2019-04-03] MEDS ORDERED: ACETAMINOPHEN 325 MG TABLET (FP) ONE (12:11)
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
== END 2019-04-03 14:22 | disposition home or self-care (01) ==
LOC: JERFT 11:10
DX: S09.8XXA Other specified injuries of head, initial encounter (principal); Y04.2XXA Assault by strike against or bumped into by another person, initial encounter; Y93.89 Activity, other specified; Y92.481 Parking lot as the place of occurrence of the external cause; Y99.8 Other external cause status; Y07.9 Unspecified perpetrator of maltreatment and neglect; I10 Essential (primary) hypertension; E78.00 Pure hypercholesterolemia, unspecified; E03.9 Hypothyroidism, unspecified; Z88.5 Allergy status to narcotic agent; Z90.49 Acquired absence of other specified parts of digestive tract
CPT/HCPCS: 70450-TC; 99282-25

== ENCOUNTER 2021-01-05 02:34 | Inpatient (IN) | payer OTHER ==
[2021-01-05 02:47] VITALS: BMI 32.9
[2021-01-05] MEDS ORDERED: ACETAMINOPHEN 1000 MG/100 ML VIAL (NON FORMULARY) IVPB ONE (02:53)
[2021-01-05] MEDS ORDERED: SODIUM CHLORIDE 1,000 ML IV STA (02:56)
[2021-01-05] MEDS ORDERED: ACETAMINOPHEN INJECTION 100 ML IVPB ONE (03:12)
[2021-01-05 03:27] LABS: BASO % 0.9 % (0-2.0); EOS % 0.6 % (0-4.5); HEMATOCRIT 37.5 % (32.4-45.2); HEMOGLOBIN 13.1 GM/dL (10.7-15.3); LYMPH % 11.8 % (8-40); MCH 31.4 pg (25.7-33.7); MCHC 34.9 g/dl (32.0-36.0); MEAN CELL VOLUME 90.1 fl (80-96); MEAN PLT VOLUME 8.3 fl (7.5-11.1); MONO % 7.1 % (3.8-10.2); NEUT % 79.6 % (42.8-82.8); PLATELET COUNT 242 10^3/uL (134-434); RBC 4.16 M/mm3 (3.60-5.2); RDW 13.9 % (11.6-15.6)
[2021-01-05 03:29] LABS: VENOUS BASE EXCESS 0.7 mmol/L (-2-2); VENOUS O2 SATURATION 92.2 % (70-80); VENOUS PCO2 32.9 mmHg (38-52); VENOUS PH 7.472 (7.310-7.410)
[2021-01-05 03:34] LABS: INR 1.11 (0.83-1.09); PROTHROMBIN TIME (PATIENT) 13.4 SEC (9.7-13.0)
[2021-01-05 03:40] LABS: CHLORIDE 104 mmol/L (98-107); SODIUM 135 mmol/L (136-145)
[2021-01-05 03:42] LABS: CALCIUM 8.1 mg/dL (8.5-10.1)
[2021-01-05 03:43] LABS: ALBUMIN 3.4 g/dl (3.4-5.0); ANION GAP 10 MMOL/L (8-16); CO2 21 mmol/L (21-32); GLUCOSE,RANDOM 161 mg/dL (74-106)
[2021-01-05 03:45] LABS: BILIRUBIN,DIRECT 0.2 mg/dL (0.0-0.2)
[2021-01-05 03:46] LABS: CREATININE 0.9 mg/dL (0.55-1.3); SGOT/AST 12 U/L (15-37); SGPT/ALT 25 U/L (13-61)
[2021-01-05 03:47] LABS: BILIRUBIN,TOTAL 0.8 mg/dL (0.2-1); TOT PROT 6.8 g/dl (6.4-8.2)
[2021-01-05 03:48] LABS: ALK PHOS 89 U/L (45-117)
[2021-01-05 03:49] LABS: LDH 176 U/L (84-246)
[2021-01-05] MEDS ORDERED: PIPERACILLIN/TAZOB 3.375 GM 3.375 GM in DEXTROSE 5%-WATER - 50 ML IVPB ONE (05:44)
[2021-01-05] MEDS ORDERED: VANCOMYCIN 1 GM in D5W (PRE-DOCKED) 1,000 MG/250 ML IVPB ONE (05:44)
[2021-01-05 05:47] LABS: PH,URINE 6.5 (5.0-8.0); URINE APPEARANCE CLEAR; URINE BILIRUBIN NEGATIVE (NEGATIVE); URINE COLOR YELLOW; URINE GLUCOSE (UA) NEGATIVE (NEGATIVE); URINE KETONE TRACE (NEGATIVE); URINE LEUK ESTERASE NEGATIVE (NEGATIVE); URINE NITRITE NEGATIVE (NEGATIVE); URINE PROTEIN NEGATIVE (NEGATIVE); URINE UROBILINOGEN 0.2 mg/dL (0.2-1.0)
[2021-01-05] MEDS ORDERED: PIPERACILLIN/TAZOB 3.375 GM 3.375 GM/50 ML BAG IVPB ONE (06:11)
[2021-01-05] MEDS ORDERED: VANCOMYCIN 1 GRAM (PRE-DOCKED) 1,000 MG/250 ML BAG IVPB ONE (06:11)
[2021-01-05] MEDS ORDERED: ENOXAPARIN NA (PORCINE) 40 MG/0.4 ML DISP.SYRIN SQ SCH (10:00)
[2021-01-05] MEDS ORDERED: ENOXAPARIN NA (PORCINE) 40 MG/0.4 ML DISP.SYRIN SQ ONE (11:42)
[2021-01-05 12:29] VITALS: BP 167/86; TEMP 98.4
[2021-01-05 12:54] VITALS: PULSE 84
== END 2021-01-05 19:40 | disposition home or self-care (01) | DRG 866 ==
LOC: JER 02:34 → JERBED 03:14
PROVIDERS: ADMIT Internal Medicine; ATTEND Internal Medicine
DX: B34.9 Viral infection, unspecified (principal); R50.9 Fever, unspecified; R00.0 Tachycardia, unspecified; R09.02 Hypoxemia; I10 Essential (primary) hypertension; E78.5 Hyperlipidemia, unspecified; K21.9 Gastro-esophageal reflux disease without esophagitis; E03.9 Hypothyroidism, unspecified
CPT/HCPCS: 36415; 71045-TC-FY; 71275-TC; 80053; 81003; 82248; 82550; 82728; 82803; 83605; 83615; 84484; 85025; 85379; 85610; 85730; 86140; 87040; 87086; 87186; 87385; 87804; 93005; 93010; 94761; 99285-25; C9803; J0131; U0003; U0005

== ENCOUNTER 2021-04-21 13:22 | Emergency (ER) | payer OTHER ==
[2021-04-21 14:00] VITALS: BP 164/98; PULSE 77; TEMP 97.6; BMI 32.0
[2021-04-21] MEDS ORDERED: CYCLOBENZAPRINE HCL 10 MG TABLET (FP) PO ONE (15:28)
[2021-04-21] MEDS ORDERED: IBUPROFEN 600 MG TABLET (FP) PO ONE (15:28)
[2021-04-21] MEDS ORDERED: CYCLOBENZAPRINE HCL 10 MG TABLET (FP) ONE (15:32)
[2021-04-21] MEDS ORDERED: NAPROXEN 500 MG TABLET ONE (15:32)
[2021-04-21] MEDS ORDERED: NAPROXEN 500 MG TABLET PO ONE (15:32)
== END 2021-04-21 15:40 | disposition home or self-care (01) ==
LOC: JERFT 13:22
DX: S13.4XXA Sprain of ligaments of cervical spine, initial encounter (principal); V49.9XXA Car occupant (driver) (passenger) injured in unspecified traffic accident, initial encounter
CPT/HCPCS: 99283-25

== ENCOUNTER 2021-05-09 16:02 | Emergency (ER) | payer OTHER ==
[2021-05-09 16:31] VITALS: BP 125/80; PULSE 80; TEMP 97; BMI 32.0
[2021-05-09] MEDS ORDERED: KETOROLAC TROMETHAMINE 30 MG/1 ML VIAL IM ONE (18:20)
[2021-05-09] MEDS ORDERED: METHOCARBAMOL 500 MG TABLET PO ONE (18:20)
[2021-05-09] MEDS ORDERED: KETOROLAC TROMETHAMINE 30 MG/1 ML VIAL ONE (18:22)
[2021-05-09] MEDS ORDERED: METHOCARBAMOL 500 MG TABLET ONE (18:22)
== END 2021-05-09 18:55 | disposition home or self-care (01) ==
LOC: JER 16:02 → JERFT 16:02
PROC: 3E0233Z Introduction of Anti-inflammatory into Muscle, Percutaneous Approach (ICD-10-PCS; principal; 2021-05-09)
DX: M62.830 Muscle spasm of back (principal); V49.40XA Driver injured in collision with unspecified motor vehicles in traffic accident, initial encounter
CPT/HCPCS: 73110-TC-LT-FY; 73130-TC-LT-FY; 99284-25

== ENCOUNTER 2023-03-18 17:01 | Emergency (ER) | payer OTHER ==
[2023-03-18] MEDS ORDERED: METOCLOPRAMIDE HCL INJECTION 10 MG/2 ML VIAL IVPB ONE (17:21)
[2023-03-18] MEDS ORDERED: ACETAMINOPHEN 1000 MG/100 ML BAG IVPB ONE (17:21)
[2023-03-18 17:30] VITALS: RESP 18
[2023-03-18] MEDS ORDERED: SODIUM CHLORIDE 0.9% 500 ML INFUS.BAG IV ONE ×2 (17:50→18:38)
[2023-03-18] MEDS ORDERED: FAMOTIDINE 20 MG/50 ML IVPB 20 MG/50 ML MG IVPB ONE ×2 (17:50→17:56)
[2023-03-18] MEDS ORDERED: METOCLOPRAMIDE HCL INJECTION 10 MG/2 ML VIAL ONE (17:51)
[2023-03-18] MEDS ORDERED: ACETAMINOPHEN INJECTION 100 ML IVPB ONE (17:52)
[2023-03-18 18:08] LABS: BASO % 0.7 % (0-2.0); EOS % 0.3 % (0-4.5); HEMOGLOBIN 13.4 GM/dL (10.7-15.3); LYMPH % 14.6 % (8-40); MCH 28.7 pg (25.7-33.7); MCHC 33.5 g/dl (32.0-36.0); MEAN CELL VOLUME 85.7 fl (80-96); MEAN PLT VOLUME 8.7 fl (7.5-11.1); MONO % 9.6 % (3.8-10.2); NEUT % 74.8 % (42.8-82.8); PLATELET COUNT 307 10^3/uL (134-434); RBC 4.67 M/mm3 (3.60-5.2); RDW 16.3 % (11.6-15.6); WHITE BLOOD COUNT 11.5 K/mm3 (4.0-10.0)
[2023-03-18 18:15] LABS: INR 1.11 (0.83-1.09); PROTHROMBIN TIME (PATIENT) 12.9 SEC (9.7-13.0)
[2023-03-18 18:17] LABS: ACTIVATED PTT 32.8 SECONDS (25.2-36.5)
[2023-03-18 18:27] LABS: POTASSIUM 4.2 mmol/L (3.5-5.1)
[2023-03-18 18:30] LABS: ALBUMIN 3.4 g/dl (3.4-5.0); BLOOD UREA NITROGEN 26.3 mg/dL (7-18); CALCIUM 8.6 mg/dL (8.5-10.1); MAGNESIUM 2.4 mg/dL (1.8-2.4)
[2023-03-18 18:33] LABS: CREATININE 1.5 mg/dL (0.55-1.3)
[2023-03-18 18:35] LABS: BILIRUBIN,TOTAL 1.1 mg/dL (0.2-1); TOT PROT 6.7 g/dl (6.4-8.2)
[2023-03-18 18:52] VITALS: BMI 28.9
[2023-03-18] MEDS ORDERED: SODIUM CHLORIDE 250 ML IV STA (22:19)
[2023-03-18 23:44] LABS: URINE APPEARANCE CLEAR; URINE BILIRUBIN NEGATIVE (NEGATIVE); URINE COLOR YELLOW; URINE GLUCOSE (UA) TRACE (NEGATIVE); URINE KETONE NEGATIVE (NEGATIVE); URINE LEUK ESTERASE NEGATIVE (NEGATIVE); URINE NITRITE NEGATIVE (NEGATIVE); URINE PROTEIN 2+ (NEGATIVE); URINE UROBILINOGEN 0.2 mg/dL (0.2-1.0)
[2023-03-18 23:46] LABS: EPI CELLS 23.3 /uL (0-25.1); HYALINE CASTS 0.29 /uL (0-3.1); URINE RBC 10.2 /uL (0-23.9); URINE WBC 115.4 /uL (0-25.8)
[2023-03-18 23:47] LABS: URINE BACTERIA 181.9 /uL (0-1359)
[2023-03-18 23:56] LABS: POTASSIUM 3.8 mmol/L (3.5-5.1)
[2023-03-18 23:58] LABS: CALCIUM 7.6 mg/dL (8.5-10.1)
[2023-03-19 00:01] LABS: CREATININE 1.2 mg/dL (0.55-1.3)
[2023-03-19 01:29] VITALS: BP 114/47; PULSE 78; TEMP 97.2
== END 2023-03-19 02:00 | disposition home or self-care (01) ==
LOC: JER 17:01
PROC: 3E033GC Introduction of Other Therapeutic Substance into Peripheral Vein, Percutaneous Approach (ICD-10-PCS; principal; 2023-03-18)
PROC: 3E033NZ Introduction of Analgesics, Hypnotics, Sedatives into Peripheral Vein, Percutaneous Approach (ICD-10-PCS; 2023-03-18)
PROC: 3E033GC Introduction of Other Therapeutic Substance into Peripheral Vein, Percutaneous Approach (ICD-10-PCS; 2023-03-18)
PROC: 3E0337Z Introduction of Electrolytic and Water Balance Substance into Peripheral Vein, Percutaneous Approach (ICD-10-PCS; 2023-03-18)
DX: R10.84 Generalized abdominal pain (principal); R55 Syncope and collapse; R51.9 Headache, unspecified; R11.0 Nausea; R19.7 Diarrhea, unspecified; N39.0 Urinary tract infection, site not specified; Z20.822 Contact with and (suspected) exposure to COVID-19
CPT/HCPCS: 0241U-QW; 36415; 71045-TC-FY; 74177-TC; 80048; 80053; 81003; 82962; 83690; 83735; 84484; 85025; 85027; 85610; 85730; 87086; 87186; 93005; 93010; 99285-25